=== PATIENT | male | born 1960 | race Hispanic/Latino ===

== ENCOUNTER 2021-05-10 07:27 | Outpatient (CLI) | payer OTHER ==
[2021-05-10] MEDS ORDERED: SINCALIDE 5 MCG VIAL IV ONE (08:39)
[2021-05-10] MEDS ORDERED: WATER FOR INJ Sterile (PF) 10 ML ONE (08:39)
[2021-05-10] MEDS: WATER FOR INJ Sterile (PF) 10 ML IV ONE (09:15)
[2021-05-10] MEDS: SINCALIDE 5 MCG VIAL IV ONE (09:15)
--- NOTE | 2021-05-10 10:00 | Nuclear Medicine Report ---
NUCLEAR MEDICINE HEPATOBILIARY SCAN INDICATION / CLINICAL INFORMATION: K80.20 GALLSTONES. TECHNIQUE: Radiotracer: Tc-99m mebrofenin (by IV): 5.5 mCi. Gallbladder Stimulant: Kinevac (in mcg by IV): 3.7 mcg COMPARISON: 03/07/2014 FINDINGS: There is normal hepatic, biliary, gallbladder, and small bowel uptake. GALLBLADDER EJECTION FRACTION % (if calculated): 26 - Normal at 30 min with Cholecystokinin: >35% PATIENT SYMPTOM REPRODUCTION: Concordant symptoms.. IMPRESSION: 1. Biliary obstruction: None. 2. Gallbladder ejection fraction: Diminished gallbladder ejection fraction. Findings are indicative o f impaired gallbladder emptying and gallbladder dysfunction. 3. Symptomatology, as above. Signer Name: Collin Jason MD Signed: 05/10/2021 9:56 AM Workstation Name: [id number]
== END 2021-05-10 07:28 | disposition home or self-care (01) ==
LOC: NM 07:27
PROVIDERS: ATTEND Internal Medicine Gastroenterology
DX: K80.20 Calculus of gallbladder without cholecystitis without obstruction (principal)
CPT/HCPCS: 78227; A9537; J2805

== ENCOUNTER 2021-07-10 08:33 | Day surgery (SDC) | payer OTHER ==
[~2021-07-10 08:33] MED LIST: SODIUM CHLORIDE 0.9% 1000 ML 1,000 ML IV SCH
--- NOTE | 2021-07-10 09:26 | Anesthesia Consultation ---
Anesthesia Consult and Med Hx Date of service: 07/10/21 - Airway Anesthetic Teeth Evaluation: Good ROM Head & Neck: Adequate Mental/Hyoid Distance: Adequate Mallampati Class: Class I Intubation Access Assessment: Probably Good - Pulmonary Exam CTA: Yes - Cardiac Exam Cardiac Exam: RRR - Pre-Operative Health Status ASA Pre-Surgery Classification: ASA4 Proposed Anesthetic Plan: MAC - Pre-Anesthesia Comment Pre-Anesthesia Comments: Family Hx of MH - Pulmonary Hx Smoking: No Hx Respiratory Symptoms: Yes (chronic cough/wheezing) Hx Sleep Apnea: Yes (uses cpap) - Cardiovascular System Hx Hypertension: Yes Hx Cardia Arrhythmia: Yes (Afib - controlled with flecanide. xarelto stopped 02/2021) - Central Nervous System Hx Neuromuscular Disorder: No (Arthritis) - Gastrointestinal Hx Ulcer: Yes Hx Gastroesophageal Reflux Disease: No (IBS) - Endocrine Hx Renal Disease: No Hx Cirrhosis: Yes (NAFLD) Hx Non-Insulin Dependent Diabetes: Yes Hx Thyroid Disease: No - Hematic Hx Anemia: No - Other Systems Hx Alcohol Use: No Hx Substance Use: No Hx Cancer: No Hx Obesity: Yes (BMI 48)
--- NOTE | 2021-07-10 09:27 | Anesthesia Day of Surgery ---
Anesthesia Day of Surgery - Day of Surgery Patient Examined: Yes Patient H&P Reviewed: Yes Patient is NPO: Yes Cardiac Clearance: Yes (on chart)
[2021-07-10] MEDS ORDERED: LIDOCAINE MPF (2%) 20 MG/1 ML VIAL 5 ML ONE (09:28)
[2021-07-10] MEDS ORDERED: propofoL 200 MG/20 ML VIAL IV ONE ×4 (09:28→09:56)
--- NOTE | 2021-07-10 10:19 | Short Stay Summary ---
Short Stay Documentation Date of service: 07/10/21 Narrative H&P: The patient present for EGD for re evaluation of a gastric ulcer with mass and history of UGI bleed. Colonoscopy for surveillance of colon polyps, last study 5 years ago. - History Past Medical History: atrial fib, diabetes, hypertension, other (obesity, asthma, AFib. HLD) Past Surgical History: tonsillectomy Social history: no significant social history, , lives with family - Allergies and Medications Current Medications: Allergies sulfacetamide sodium [From Sulfamide] Allergy (Severe, Verified 12/17/15 12:43) Swelling RASH/SWELLING Cephalosporins Allergy (Intermediate, Verified 12/17/15 12:43) Rash Penicillins Allergy (Intermediate, Verified 12/17/15 12:43) Rash RASH/SWELLING sulfacetamide Allergy (Intermediate, Verified 12/17/15 12:43) Swelling RASH Sulfa (Sulfonamide Antibiotics) Allergy (Mild, Verified 12/17/15 12:43) Rash doxycycline Adverse Reaction (Intermediate, Verified 12/17/15 12:43) blisters levofloxacin [From Levaquin] Adverse Reaction (Intermediate, Verified 12/17/15 12:43) blisters sulfamethoxazole [From Bactrim] Adverse Reaction (Intermediate, Verified 12/17/15 12:43) blisters trimethoprim [From Bactrim] Adverse Reaction (Intermediate, Verified 12/17/15 12:43) blisters Home Medications Medication Instructions Recorded Confirmed Last Taken Type Losartan [Cozaar] 100 mg PO QDAY 02/01/13 11/22/14 11/21/14 History Simvastatin 20 mg PO QHS 02/01/13 11/22/14 11/21/14 History Verapamil Sr [Calan SR] 240 mg PO DAILY 02/01/13 11/22/14 11/21/14 History hydroCHLOROthiazide [HCTZ] 12.5 mg PO QDAY 02/01/13 11/22/14 11/21/14 History metFORMIN [Glucophage] 1,000 mg PO BID 02/01/13 11/22/14 11/21/14 History diphenhydrAMINE [Benadryl CAP] 50 mg PO BID 03/02/14 11/22/14 11/21/14 History Rivaroxaban [Xarelto] 20 mg PO QDAY 09/15/14 11/22/14 11/21/14 History Amiodarone [Cordarone] 200 mg PO DAILY 11/22/14 11/22/14 11/21/14 History Clindamycin [Clindamycin CAP] 300 mg PO Q8H #30 cap 12/17/15 Unknown Rx Ibuprofen [Motrin 400 MG tab] 400 mg PO Q8H PRN #20 tablet 12/17/15 Unknown Rx Active Medications Sodium Chloride (Nacl 0.9% 1000 Ml) 1,000 mls @ 50 mls/hr IV DIRECT LEXI - Physical exam General appearance: no acute distress, well-nourished, obese Integumentary: no rash, no growths, no abnormal pigmentation HEENT: Atraumatic, PERRLA, EOMI, Mucous membr. moist/pink Lungs: Normal air movement Breasts: deferred Heart: Regular rate, Normal S1, Normal S2, No murmurs Gastrointestinal: normoactive bowel sounds, no tenderness, no distended, no masses, no guarding, no organomegaly, obese Male Genitourinary: deferred Rectal Exam: normal exam-external/orifice, no mass Extremities: no ischemia, pulses intact, pulses symmetrical, No edema, normal temperature, normal color, Full ROM Neurological: Normal gait, Normal speech, Strength at 5/5 X4 ext, Normal tone, Sensation intact, Cranial nerves 3-12 NL, Reflexes 2+ - Brief post op/procedure progress note Date of procedure: 07/10/21 Findings: see dictations Estimated blood loss: none Pathology: list (1.Bxs of antral mass- r/o lipoma, r/o GIST, 2. transverse colon polyp 3 descending polyp 4. sigmoid colon polyp) Specimen disposition: to lab Condition: stable - Disposition Condition at discharge: Good Disposition: 01 HOME / SELF CARE / HOMELESS - Discharge Diagnoses (1) Gastric mass Status: Acute (2) History of gastric ulcer Status: Acute (3) History of colonic polyps Status: Acute Short Stay Discharge Plan Activity: other (No driving for 24 hours, may restart Xarelto in 5 days) Weight Bearing Status: Weight Bear as Tolerated Diet: diabetic Follow up with: NOEL PAUL II, MD [Primary Care Provider] - 7 Days
--- NOTE | 2021-07-10 10:24 | Operative Report ---
Operative Report Operative Report: Date of procedure: 07/10/2021 Procedure: Esophagogastroduodenoscopy with multiple biopsies of a submucosal ant ral mass Preprocedure diagnosis: History of bleeding ulcer with an underlying mass in the gastric antrum Post procedure diagnosis: Submucosal mass with characteristics of a lipoma endoscopically. Healed ulcer. Endoscopist: Dr. Darden Anesthesia: Monitored anesthesia care per anesthesia department Medications: Propofol per anesthesia Estimated blood loss: Minimal After careful discussion of the nature and purpose of the procedure as well as details the technique risks benefits and alternatives consent was obtained. The patient was placed in the left lateral decubitus position and medicated per anesthesia. The tip of the [employer] EQ 570 video scope was passed per orum under direct vision into the esophagus and advanced into the stomach and descending duodenum. The descending duodenum the duodenal bulb and pylorus were symmetrical and normal. The scope was withdrawn into the stomach and the stomach then gently insufflated with air. The antrum revealed a 3 cm submucosal mass which had a positive pillow sign to probe with a biopsy forceps. Multiple stacked biopsies were obtained in effort to obtain submucosal tissue. No significant bleeding was encountered. The stomach was further insufflated and the scope was then retroflexed and partially withdrawn. The cardia, fundus, and body of the stomach were within normal limits and easily distensible.The scope was then withdrawn in the forward position. The esophagogastric junction was at 40 cm. The esophageal body was normal throughout. The procedure was was well tolerated and the patient was observed in recovery. Impressions: Submucosal mass in the lesser curvature of the antrum with endoscopic characteristics of a lipoma. Rule out GIST alternatively Plan: Await results of biopsies. The patient appears reasonably safe to restart anticoagulation within a few days depending upon the colonoscopy findings. He may need endoscopic ultrasound with FNA if biopsies are nondiagnostic. Electronically signed: Mp Darden MD
--- NOTE | 2021-07-10 10:27 | Operative Report ---
Operative Report Operative Report: Date of procedure: 07/10/2021 Preprocedure diagnosis: History of colon polyps, last study 5 years ago Post procedure diagnosis: Small polyps in the transverse, descending and sigmoid colon. Procedure: Colonoscopy to the cecum with hot snare and hot forceps polypectomies. Endoscopist: Dr. Darden Anesthesia: Monitored anesthesia care per anesthesia department Estimated blood loss: 0 Medications: Monitored anesthesia care. See separate report by anesthesia for details. After careful discussion of the nature and purpose of the procedure as well as details of the technique risks benefits and alternatives the patient gave consent. Please see recent history and physical from the office. The patient was placed in the left lateral decubitus position and medicated per anesthesia. A rectal exam was performed sphincter tone was normal there were no masses palpable. The i-nexusn 570 scope was passed transanally and advanced under continuous direct vision without difficulty to the cecum. The colon was well prepared. The cecum was normal. The ascending colon was normal and on forward and retroflexed views. The transverse colon revealed a 7 mm semipedunculated polyp. The polyp was removed with the snare and electrocautery. The descending colon revealed a 4 mm sessile polyp which was removed with hot forceps. There was a 6 mm sigmoid polyp which was removed with hot snare cautery and retrieved by suction. The rectum was normal on forward and retroflexed views. The procedure was well-tolerated overall and the patient was observed in recovery. Conclusions: Small colon polyps in the transverse and left colon. Plan: Await pathology. Follow-up colonoscopy in 5 years. Signed electronically: Mp Darden M.D.
--- NOTE | 2021-07-10 15:21 | Post Anesthesia Evaluation ---
- Post Anesthesia Evaluation Patient Participated: Yes Airway Patent: Yes Stable Respiratory Function: Yes Nausea/Vomiting: No Temp > 96.8F: Yes Pain Manageable: Yes Adequeate Hydration: Yes Anesthesia Complications: No
[2021-07-10 19:08] VITALS: BP 135/64
== END 2021-07-10 08:34 | disposition home or self-care (01) ==
LOC: GIO 08:33
PROVIDERS: ATTEND Internal Medicine Gastroenterology
DX: Z12.11 Encounter for screening for malignant neoplasm of colon (principal); K31.89 Other diseases of stomach and duodenum; D12.3 Benign neoplasm of transverse colon; D12.4 Benign neoplasm of descending colon; K25.9 Gastric ulcer, unspecified as acute or chronic, without hemorrhage or perforation; I48.91 Unspecified atrial fibrillation; E11.9 Type 2 diabetes mellitus without complications; I10 Essential (primary) hypertension; E66.9 Obesity, unspecified; M19.90 Unspecified osteoarthritis, unspecified site; G47.30 Sleep apnea, unspecified; J45.909 Unspecified asthma, uncomplicated; E78.00 Pure hypercholesterolemia, unspecified; Z86.010 Personal history of colon polyps; Z79.899 Other long term (current) drug therapy; Z88.2 Allergy status to sulfonamides; Z88.8 Allergy status to other drugs, medicaments and biological substances; Z88.0 Allergy status to penicillin; Z79.84 Long term (current) use of oral hypoglycemic drugs; Z98.890 Other specified postprocedural states; Z68.42 Body mass index [BMI] 45.0-49.9, adult
CPT/HCPCS: 43239; 45384; 45385; 82962; 88305; 88341; 88342; J2704; J3490; J7030; J7120; Q0162